=== PATIENT | male | born 1990 | race Two or more races ===

== ENCOUNTER 2024-08-26 20:16 | Emergency (ER) | payer OTHER ==
[~2024-08-26] VITALS: Ht 170.2 cm; Wt 72.6 kg
[2024-08-26] MEDS ORDERED: LORAZEPAM 1 MG TABLET ONE (20:53)
[2024-08-26] MEDS: LORAZEPAM 0.5 MG TABLET PO ONE (20:55)
[2024-08-26 21:05] LABS: BASOPHILS # (AUTO) 0.1 K/UL (0.0-0.2); BASOPHILS % (AUTO) 0.8 % (0.0-2.0); EOSINOPHILS % (AUTO) 0.2 % (0.0-7.0); HEMATOCRIT 43.6 % (36.7-47.1); HEMOGLOBIN 15.1 g/dL (12.5-16.3); LYMPHOCYTES # (AUTO) 2.3 K/uL (0.8-4.8); LYMPHOCYTES % (AUTO) 21.2 % (20.5-51.5); MEAN CORPUSCULAR HEMOGLOBIN 30.3 uug (23.8-33.4); MEAN CORPUSCULAR HGB CONC 35 g/dL (32.5-36.3); MEAN CORPUSCULAR VOLUME 87.6 fL (73.0-96.2); MONOCYTES % (AUTO) 8.9 % (0.0-11.0); NEUTROPHILS # (AUTO) 7.4 K/uL (1.8-8.9); NEUTROPHILS % (AUTO) 68.9 % (38.5-71.5); PLATELET COUNT (AUTO) 261 K/uL (152-348); RED BLOOD CELL COUNT(AUTO) 4.97 MIL/uL (4.06-5.63); WHITE BLOOD COUNT (AUTO) 10.7 K/uL (3.6-10.2)
[2024-08-26 21:06] LABS: DIFFERENTIAL COMMENT 1
[2024-08-26 21:12] LABS: CALCIUM 8.9 mg/dL (8.5-10.1); CARBON DIOXIDE 25 mmol/L (21-32); CHLORIDE 98 mmol/L (98-107); CREATININE 1.2 mg/dL (0.6-1.3); GLUCOSE 97 mg/dL (74-106); POTASSIUM 3.7 mmol/L (3.5-5.1); SODIUM SERUM 135 mmol/L (136-145); UREA NITROGEN, BLOOD 20 mg/dL (7-18)
[2024-08-26 21:17] LABS: ETHANOL < 3 MG/DL (0-10)
[2024-08-26 21:20] LABS: *AMPHETAMINE, URINE POSITIVE (NEGATIVE); *BARBITURATE, URINE NEGATIVE (NEGATIVE); *BENZODIAZEPINE, URINE NEGATIVE (NEGATIVE); *CANNABINOID, URINE POSITIVE (NEGATIVE); *COCCAINE, URINE NEGATIVE (NEGATIVE); *OPIATE, URINE NEGATIVE (NEGATIVE); *PHENCYCLIDINE SCREEN,URINE NEGATIVE (NEGATIVE); FENTANYL, URINE NEGATIVE (NEGATIVE)
[2024-08-26 21:26] LABS: THYROID STIMULATING HORMONE 1.078 mIU/mL (0.358-3.740)
[2024-08-26 21:28] LABS: ALANINE AMINOTRANSFERASE 48 U/L (16-63); ALBUMIN 4.4 g/dL (3.4-5.0); ALKALINE PHOSPHATASE 89 U/L (50-136); ASPARTATE AMINOTRANSFERASE 45 U/L (15-37); BILIRUBIN,TOTAL 1.4 mg/dL (0.2-1.0); CREATINE KINASE, TOTAL 1043 U/L (39-308); TOTAL PROTEIN, SERUM 8.4 g/dL (6.4-8.2)
[2024-08-27] MEDS: IV NS 1000 ML 1,000 ML IV ONE (00:02)
[2024-08-27 02:27] VITALS: BP 133/76; TEMP 98; O2SAT 99
== END 2024-08-27 02:28 | disposition home or self-care (01) ==
LOC: ER 20:19
DX: F15.10 Other stimulant abuse, uncomplicated (principal); F17.200 Nicotine dependence, unspecified, uncomplicated; E86.0 Dehydration; F22 Delusional disorders; M62.82 Rhabdomyolysis; F41.9 Anxiety disorder, unspecified
CPT/HCPCS: 80053; 82550; 83735; 84443; 85025; 36415; 99283; 80320; 80307; 96360; 96361; J7040; A4606; A4663; G0480